=== PATIENT | male | born 1990 | race African-American/Black ===

== ENCOUNTER 2016-09-06 15:00 | Outpatient (RCR) | payer MEDICAID | END 2016-09-12 | disposition home or self-care (01) | LOC: M OUTALCOH 15:00 | PROVIDERS: ATTEND Psychiatry & Neurology Psychiatry | DX: F10.20 Alcohol dependence, uncomplicated (principal); F12.20 Cannabis dependence, uncomplicated; F13.10 Sedative, hypnotic or anxiolytic abuse, uncomplicated; F17.200 Nicotine dependence, unspecified, uncomplicated ==

== ENCOUNTER → 2016-10-10 | Outpatient (RCR) | payer MEDICAID | LOC: M OUTALCOH 09-13 15:00 | PROVIDERS: ATTEND Psychiatry & Neurology Psychiatry | DX: F12.20 Cannabis dependence, uncomplicated (principal); F10.20 Alcohol dependence, uncomplicated; F13.10 Sedative, hypnotic or anxiolytic abuse, uncomplicated; F17.200 Nicotine dependence, unspecified, uncomplicated ==

== ENCOUNTER → 2016-11-10 | Outpatient (RCR) | payer MEDICAID | LOC: M OUTALCOH 10-11 14:38 | PROVIDERS: ATTEND Psychiatry & Neurology Psychiatry | DX: F12.20 Cannabis dependence, uncomplicated (principal); F10.20 Alcohol dependence, uncomplicated; F13.10 Sedative, hypnotic or anxiolytic abuse, uncomplicated; F17.200 Nicotine dependence, unspecified, uncomplicated ==

== ENCOUNTER → 2017-01-16 | Outpatient (REF) | payer MEDICAID ==
[2017-01-16 14:06] LABS: ALBUMIN 3.6 GM/DL (3.2-5.2); ALBUMIN/GLOBULIN RATIO 0.95 (1.00-1.93); ALKALINE PHOSPHATASE 54 U/L (45-117); ALT/SGPT 32 U/L (12-78); ANION GAP 1 MEQ/L (8-16); AST/SGOT 10 U/L (15-37); BILIRUBIN,TOTAL 0.3 MG/DL (0.2-1.0); BLOOD UREA NITROGEN 10 MG/DL (7-18); CALCIUM LEVEL 9.7 MG/DL (8.5-10.1); CARBON DIOXIDE LEVEL 33 MEQ/L (21-32); CHLORIDE LEVEL 106 MEQ/L (98-107); CHOLESTEROL LEVEL 153 MG/DL (<200); CREATININE FOR GFR 1.11 MG/DL (0.70-1.30); GLOMERULAR FILTRATION RATE > 60.0 (>60); GLUCOSE, FASTING 92 MG/DL (70-105); POTASSIUM SERUM 4.2 MEQ/L (3.5-5.1); SODIUM LEVEL 140 MEQ/L (136-145); TOTAL PROTEIN 7.4 GM/DL (6.4-8.2); TRIGLYCERIDES LEVEL 147 MG/DL (<150)
== END ==
LOC: M LAB REF 13:10
PROVIDERS: ATTEND Family Medicine Addiction Medicine
DX: R03.0 Elevated blood-pressure reading, without diagnosis of hypertension (principal)

== ENCOUNTER → 2017-08-05 | Outpatient (REF) | payer MEDICAID | LOC: M LAB REF 12:04 | PROVIDERS: ATTEND Physician Assistant Medical | DX: J02.9 Acute pharyngitis, unspecified (principal) ==

== ENCOUNTER 2019-11-22 12:24 | Emergency (ER) | payer MEDICAID, SELFPAY ==
[~2019-11-22] VITALS: Ht 182.9 cm; Wt 123.0 kg
[2019-11-22 12:38] VITALS: BP 170/92
[2019-11-22] MEDS ORDERED: NAPR-837 PO (13:44)
== END 2019-11-22 13:53 | disposition home or self-care (01) ==
LOC: M ED 12:24
DX: G56.31 Lesion of radial nerve, right upper limb (principal); F17.210 Nicotine dependence, cigarettes, uncomplicated

== ENCOUNTER 2020-03-01 19:22 | Emergency (ER) | payer MEDICAID, SELFPAY ==
[~2020-03-01] VITALS: Ht 193 cm; Wt 131.9 kg
[~2020-03-01 19:22] MED LIST: NAPR-837 PO
[2020-03-01] MEDS ORDERED: AZITHROMYCIN 250MG TABLET PO ONE (20:45)
[2020-03-01] MEDS ORDERED: LIDOCAINE 1% SDV 5ML VIAL DILUENT ONE (20:45)
[2020-03-01] MEDS ORDERED: cefTRIAXone SOD 250MG VIAL (J0696 PER 250MG) IM ONE (20:45)
[2020-03-01 20:58] VITALS: BP 145/89
[2020-03-01 22:20] LABS: CHLAMYDIA DNA AMPLIFICATION NEGATIVE (NEGATIVE); GC DNA AMPLIFICATION POSITIVE (NEGATIVE)
[2020-03-03 11:38] LABS: HEPATITIS A ANTIBODY IGM NEGATIVE (NEGATIVE); HEPATITIS B CORE ANTIBODY IGM NEGATIVE (NEGATIVE); HEPATITIS B SURFACE ANTIGEN NEGATIVE (NEGATIVE); HEPATITIS C VIRUS ABY INDEX 0.1 INDEX (<0.8); HIV 1&2 SCREEN CENTAUR NEGATIVE (NEGATIVE)
== END 2020-03-01 21:06 | disposition home or self-care (01) ==
LOC: M ED 19:22
DX: Z20.2 Contact with and (suspected) exposure to infections with a predominantly sexual mode of transmission (principal); N50.89 Other specified disorders of the male genital organs; F17.210 Nicotine dependence, cigarettes, uncomplicated
CPT/HCPCS: 81001; 86705; 86709; 86780; 86803; 87086; 87340; 87389; 87491; 87591; 87661; 96372; 99283; J0696

== ENCOUNTER 2021-02-19 10:58 | Emergency (ER) | payer MEDICAID, OTHER ==
[~2021-02-19] VITALS: Ht 193 cm; Wt 118.2 kg
[2021-02-19] MEDS ORDERED: BENZOCAINE 20% GEL 9GM TUBE (ANBESOL MAX STRENGTH) TOP ONE (12:25)
[2021-02-19] MEDS ORDERED: IBUP80TA PO (12:27)
[2021-02-19] MEDS ORDERED: PERC5TAB12 PO (12:27)
[2021-02-19] MEDS ORDERED: AUGM875T28 PO (12:27)
[2021-02-19] MEDS ORDERED: ACETAMINOPHEN 500 MG TAB PO ONE (12:30)
[2021-02-19 12:51] VITALS: BP 125/78
== END 2021-02-19 12:52 | disposition home or self-care (01) ==
LOC: M ED 10:58
DX: K02.9 Dental caries, unspecified (principal); F17.210 Nicotine dependence, cigarettes, uncomplicated

== ENCOUNTER → 2022-02-10 | Outpatient (REF) ==
[~2022-02-10] MED LIST changes: +AUGM875T28 PO; +IBUP80TA PO; +PERC5TAB12 PO
== END ==
LOC: M LAB 15:20
PROVIDERS: ATTEND Nurse Practitioner Adult Health
DX: Z02.1 Encounter for pre-employment examination (principal)